=== PATIENT | male | born 1980 | race Caucasian/White ===

== ENCOUNTER 2020-06-25 10:00 | Emergency (ER) | payer OTHER ==
[~2020-06-25] VITALS: Ht 165.1 cm; Wt 84.4 kg
[2020-06-25 10:07] VITALS: BP 150/95
--- NOTE | 2020-06-25 10:15 | NUR ---
Patient ambulated to bed 5. RN evaluating the patient at bedside.
--- NOTE | 2020-06-25 10:21 | NUR ---
Dr. Beauchamp is evaluating the patient at bedside.
--- NOTE | 2020-06-25 10:29 | NUR ---
PT LAC CLEANED AND IRRIGATED WITH NORMAL SALINE.
--- NOTE | 2020-06-25 10:29 | NUR ---
LAC SET UP AT BED SIDE, ERMD NOTIFIED.
[2020-06-25] MEDS ORDERED: LIDOCAINE MPF 1% 10 MG/ML VIAL INJ ONE (10:35)
--- NOTE | 2020-06-25 10:35 | NUR ---
40 YEAR OLD MALE COMPLAINS OF RIGHT EAR LACERATION X TODAY. PT STATES THAT HE WAS CUT BY A WIRE AT WORK. BLEEDING CONTROLLED, SITE WITH LACERATION ON EARLOBE. PT AOX4, BREATHING EVEN AND UNLABORED, SKIN WARM AND DRY. BED IN LOWEST POSITION, SEMI-FOWLERS, LOCKED, BED RAIL UPX1 PMH - DENIES ALLERGIES - NKA
[2020-06-25] MEDS ORDERED: LIDOCAINE MPF 1% 5 ML ONE (10:36)
[2020-06-25] MEDS ORDERED: BACITRACIN OINT 500 UNITS/GM PKT TP ONE (11:05)
--- NOTE | 2020-06-25 11:19 | NUR ---
PROCEDURE COMPLETED BY DR BIANCHI ON RIGHT EAR, SITE COVERED WITH BACITRACIN AND GAUZE
[2020-06-25] MEDS ORDERED: IBUP-2213 PO (11:23)
[2020-06-25] MEDS ORDERED: CEPH500C16 PO (11:23)
[2020-06-25 11:29] VITALS: BP 150/95
--- NOTE | 2020-06-25 11:29 | NUR ---
Patient discharged with v/s stable. Written and verbal after care instructions about laceration care given and explained. Patient alert, oriented and verbalized understanding of instructions. Ambulatory with steady gait. All questions addressed prior to discharge. ID band removed. Patient advised to follow up with PMD. Rx of keflex, ibuprofen given. Patient educated on indication of medication including possible reaction and side effects. Opportunity to ask questions provided and answered.
== END 2020-06-25 11:29 | disposition home or self-care (01) ==
LOC: MED 10:00
DX: S01.311A Laceration without foreign body of right ear, initial encounter (principal); W26.8XXA Contact with other sharp object(s), not elsewhere classified, initial encounter; Y93.89 Activity, other specified; Y92.89 Other specified places as the place of occurrence of the external cause; Y99.8 Other external cause status
CPT/HCPCS: 12013; 99283; J2001